=== PATIENT | female | born 1945 | race Caucasian/White ===

== ENCOUNTER 2023-10-28 06:45 | Inpatient (IN) ==
[2023-10-28] MEDS: methylPREDNISolone SOD SUCC 125 MG/2 ML VIAL IV ONE (07:47)
[2023-10-28 08:06] LABS: Basophils # (Auto) 0.01 K/mcL (0.00-0.30); Basophils % (Auto) 0 % (0.0-2.0); Eosinophils # (Auto) 0 K/mcL (0.00-0.70); Eosinophils % (Auto) 0 % (0.0-7.0); Hematocrit 24.7 % (34.1-44.9); Hemoglobin 7.7 g/dL (11.2-15.7); Lymphocytes # (Auto) 0.72 K/mcL (1.50-4.80); Lymphocytes % (Auto) 2.6 % (15.5-49.0); Mean Cell Volume 69.6 fL (80.0-100.0); Mean Corpuscular HGB Conc 31.2 g/dL (31.0-36.0); Mean Platelet Volume 8.4 fL (8.8-12.5); Monocytes # (Auto) 2.06 K/mcL (0.10-0.90); Monocytes % (Auto) 7.4 % (1.0-12.0); Neutrophils % (Auto) 89.6 % (38.0-78.0); Platelet Count 540 K/mcL (140-440); RBC 3.55 M/mcL (3.59-5.38); Red Cell Distribution Width 22.2 % (11.5-14.5); WBC 27.7 K/mcL (4.5-11.0)
[2023-10-28] MEDS: IPRATROPIUM/ALBUTEROL 3 ML AMPUL.NEB NEB ONE ×3 (08:10→15:35)
[2023-10-28 08:24] LABS: ALT/SGPT 9 U/L (<40); AST/SGOT 28 U/L (<32); Albumin 3.2 gm/dL (3.2-5.2); Alkaline Phosphatase 69 U/L (39-117); Bilirubin,Total 0.6 mg/dL (0.1-1.0); Blood Urea Nitrogen 10 mg/dL (8-23); Calcium 9.1 mg/dL (8.6-10.4); Carbon Dioxide 27 mmol/L (22-30); Chloride 94 mmol/L (96-108); Globulin 3.3 gm/dL (2.2-3.7); Glomerular Filtration Rate 92; Glucose 97 mg/dL (70-105)
[2023-10-28] MEDS: AZITHROMYCIN 500 MG in DEXTROSE 5% IN WATER 250 ML IV ONE (08:24)
[2023-10-28] MEDS: cefTRIAXone 1 GM VIAL IV ONE (08:26)
[2023-10-28 13:16] LABS: Anisocytosis 1+ (None Seen); Hypochromasia 1+ (None Seen); Lymphocytes % 2 % (15-49); Microcytosis 1+ (None Seen); Monocytes % (Manual) 7 % (1-12); Platelet Estimate INCREASED (Normal); RBC Morphology ABNORMAL (Normal); Segmented Neutrophils % 91 % (38-78)
[2023-10-28] MEDS ORDERED: HYDROcodone/APAP 5/325MG TABLET PO PRN (15:13)
[2023-10-28] MEDS ORDERED: POTASSIUM CHLORIDE 40 MEQ in DEXTROSE 5% IN WATER 500 ML IV PRN (15:13)
[2023-10-28] MEDS ORDERED: POLYETHYLENE GLYCOL 3350 17 GM PACKET PO PRN (15:13)
[2023-10-28] MEDS ORDERED: ONDANSETRON 4 MG/2 ML VIAL IV PRN (15:13)
[2023-10-28] MEDS ORDERED: IPRATROPIUM/ALBUTEROL 3 ML AMPUL.NEB NEB PRN (15:13)
[2023-10-28] MEDS ORDERED: ACETAMINOPHEN 325 MG TABLET PO PRN (15:13)
[2023-10-28] MEDS ORDERED: MAGNESIUM SULFATE 2 GM/50 ML BAG IV PRN (15:13)
[2023-10-28] MEDS ORDERED: POTASSIUM CHLORIDE 20 MEQ TABLET PO PRN (15:13)
[2023-10-28] MEDS ORDERED: LABETALOL HCL 20 MG/4 ML VIAL IV PRN (15:13)
[2023-10-28] MEDS ORDERED: SENNOSIDES 1 TABLET PO PRN (15:13)
[2023-10-28 15:15] LABS: Appearance,Urine Clear (Clear); Bilirubin,Urine Negative (Negative); Color,Urine Yellow; Culture Indicated,Urine No; Glucose,Urine (UA) Negative (Negative); Ketones,Urine 15(1+) mg/dL (Negative); Leukocyte Esterase,Urine Negative /uL (Negative); Mucus,Urine Few /hpf; Nitrate,Urine Negative (Negative); Protein,Urine 30 mg/dL (Negative); Urine Blood Negative (Negative); Urine Hyaline Cast 2 /lph (0-2); Urine RBC 0 /hpf (0-3); Urine Squamous Epithelial Cell 1 /hpf (0-4); Urine WBC 1 /hpf (0-4); Urobilinogen,Urine Normal
[2023-10-28] MEDS: IPRATROPIUM/ALBUTEROL 3 ML AMPUL.NEB NEB SCH (15:35)
[2023-10-28] MEDS: methylPREDNISolone SOD SUCC 125 MG/2 ML VIAL IV SCH (16:13)
[2023-10-28] MEDS: 0.9 % SODIUM CHLORIDE 10 ML SYRINGE IV SCH (16:14)
[2023-10-28] MEDS: POTASSIUM CHLORIDE 20 MEQ TABLET PO PRN (18:23)
[2023-10-28] MEDS: BUDESONIDE 0.5 MG/2 ML AMPUL.NEB NEB SCH (18:58)
[2023-10-28] MEDS: DOCUSATE SODIUM 100 MG CAPSULE PO SCH (20:51)
[2023-10-29] MEDS: ASPIRIN 81 MG TAB.CHEW CHEWED ONE (05:49)
[2023-10-29] MEDS: ASPIRIN 81 MG TAB.CHEW ONE ×2 (06:07)
[2023-10-29 06:24] LABS: Basophils # (Auto) 0.01 K/mcL (0.00-0.30); Basophils % (Auto) 0 % (0.0-2.0); Eosinophils # (Auto) 0 K/mcL (0.00-0.70); Eosinophils % (Auto) 0 % (0.0-7.0); Hematocrit 24.3 % (34.1-44.9); Hemoglobin 7.4 g/dL (11.2-15.7); Lymphocytes # (Auto) 0.53 K/mcL (1.50-4.80); Lymphocytes % (Auto) 2.2 % (15.5-49.0); Mean Cell Volume 70.8 fL (80.0-100.0); Mean Corpuscular HGB Conc 30.5 g/dL (31.0-36.0); Mean Platelet Volume 8.6 fL (8.8-12.5); Monocytes # (Auto) 0.84 K/mcL (0.10-0.90); Monocytes % (Auto) 3.5 % (1.0-12.0); Neutrophils % (Auto) 93.9 % (38.0-78.0); Platelet Count 477 K/mcL (140-440); RBC 3.43 M/mcL (3.59-5.38); Red Cell Distribution Width 22.2 % (11.5-14.5); WBC 24.2 K/mcL (4.5-11.0)
[2023-10-29 06:25] LABS: Basophils # (Auto) 0.01 K/mcL (0.00-0.30); Basophils % (Auto) 0 % (0.0-2.0); Eosinophils # (Auto) 0 K/mcL (0.00-0.70); Eosinophils % (Auto) 0 % (0.0-7.0); Hematocrit 25.9 % (34.1-44.9); Hemoglobin 7.9 g/dL (11.2-15.7); Lymphocytes # (Auto) 0.83 K/mcL (1.50-4.80); Mean Cell Volume 70.4 fL (80.0-100.0); Mean Corpuscular HGB Conc 30.5 g/dL (31.0-36.0); Mean Platelet Volume 8.7 fL (8.8-12.5); Monocytes # (Auto) 0.98 K/mcL (0.10-0.90); Monocytes % (Auto) 3.6 % (1.0-12.0); Platelet Count 539 K/mcL (140-440); RBC 3.68 M/mcL (3.59-5.38); Red Cell Distribution Width 22.3 % (11.5-14.5); WBC 27.2 K/mcL (4.5-11.0)
[2023-10-29] MEDS ORDERED: IOPAMIDOL 100 ML BOTTLE IV ONE (06:27)
[2023-10-29 06:35] LABS: Blood Urea Nitrogen 11 mg/dL (8-23); Calcium 9.5 mg/dL (8.6-10.4); Carbon Dioxide 29 mmol/L (22-30); Chloride 97 mmol/L (96-108); Glomerular Filtration Rate 92; Glucose 147 mg/dL (70-105)
[2023-10-29 06:35] LABS: ALT/SGPT 8 U/L (<40); AST/SGOT 27 U/L (<32); Albumin/Globulin Ratio 0.9 (1.0-2.3); Alkaline Phosphatase 68 U/L (39-117); Bilirubin,Direct < 0.2 mg/dL (0-0.3); Bilirubin,Total 0.3 mg/dL (0.1-1.0); Blood Urea Nitrogen 10 mg/dL (8-23); Calcium 9.1 mg/dL (8.6-10.4); Carbon Dioxide 28 mmol/L (22-30); Chloride 97 mmol/L (96-108); Globulin 3.3 gm/dL (2.2-3.7); Glomerular Filtration Rate 99; Glucose 137 mg/dL (70-105); Lactate Dehydrogenase 151 U/L (135-225); Phosphorous 2.9 mg/dL (2.5-4.5); Triglycerides 48 mg/dL (<150); Uric Acid 4.5 mg/dL (2.5-8.0)
[2023-10-29 07:22] LABS: POC INR 1.1 (0.8-1.2); POC Pro Time 13.4 (11.9-14.5)
[2023-10-29] MEDS ORDERED: LABETALOL HCL 20 MG/4 ML VIAL IV PRN (07:33)
[2023-10-29] MEDS: CLOPIDOGREL 75 MG TABLET PO ONE ×2 (08:01→16:00)
[2023-10-29] MEDS: ASPIRIN 81 MG TAB.CHEW PO SCH (08:02)
[2023-10-29 08:51] LABS: HDL Cholesterol 72 mg/dL (>40); LDL Cholesterol,Calculated 27 mg/dL (<100); Non-HDL Cholesterol 36 mg/dL (<130); Triglycerides 50 mg/dL (<150)
[2023-10-29] MEDS ORDERED: ATORVASTATIN 10 MG TABLET PO SCH (09:00)
[2023-10-29] MEDS ORDERED: CARBOXYMETHYLCELLULOSE SODIUM 1 EACH DROPER.GEL OU PRN (09:00)
[2023-10-29 09:10] LABS: Anisocytosis 2+ (None Seen); Band Neutrophils % 10 % (0-10); Hypochromasia 1+ (None Seen); Lymphocytes % 3 % (15-49); Microcytosis 1+ (None Seen); Monocytes % (Manual) 2 % (1-12); Ovalocytes 1+ (None Seen); Platelet Estimate INCREASED (Normal); Polychromasia FEW (None Seen); RBC Morphology ABNORMAL (Normal); Segmented Neutrophils % 85 % (38-78); Toxic Granulation 1+ (None Seen)
[2023-10-29] MEDS: AZITHROMYCIN 500 MG in DEXTROSE 5% IN WATER 250 ML IV SCH (09:29)
[2023-10-29] MEDS: ENOXAPARIN 40 MG/0.4 ML SYRINGE SQ SCH (09:29)
[2023-10-29] MEDS: cefTRIAXone 1 GM VIAL IV SCH (09:29)
[2023-10-29] MEDS: FUROSEMIDE 40 MG/4 ML VIAL IV ONE (10:43)
[2023-10-29] MEDS: LOSARTAN 50 MG TABLET PO SCH (10:45)
[2023-10-29] MEDS: ATORVASTATIN 10 MG TABLET PO SCH (10:46)
[2023-10-29] MEDS ORDERED: MONTELUKAST 10 MG TABLET PO SCH (21:00)
[2023-10-30] MEDS ORDERED: CLOPIDOGREL 75 MG TABLET PO SCH (09:00)
== END 2023-10-29 16:45 | disposition short-term general hospital (02) | DRG 64 ==
LOC: ED 06:45 → MEDSUR 15:08
PROVIDERS: ADMIT Internal Medicine; ATTEND Internal Medicine